=== PATIENT | male | born 1965 | race Two or more races ===

== ENCOUNTER 2025-09-09 13:25 | Emergency (ER) | payer MEDICAID ==
[~2025-09-09] VITALS: Ht 177.8 cm; Wt 79.8 kg
[2025-09-09 13:57] LABS: PLATELET COUNT (AUTO) 318 K/uL (150-450); RED BLOOD CELL COUNT(AUTO) 4.56 MIL/uL (4.5-6.0); RED CELL DISTRIBUTION WIDTH 13.2 % (11.5-15.0); WHITE BLOOD COUNT (AUTO) 6.3 K/uL (4.3-11.0)
[2025-09-09 14:03] LABS: CALCIUM, SERUM 8.9 mg/dL (8.5-10.1); CREATININE 0.8 mg/dL (0.6-1.3); SODIUM SERUM 135.0 mmol/L (136-145); UREA NITROGEN, BLOOD 16.0 mg/dL (7-18)
[2025-09-09 14:09] LABS: ASPARTATE AMINOTRANSFERASE 20.0 U/L (15-37); TOTAL PROTEIN, SERUM 8.3 g/dL (6.4-8.2)
[2025-09-09 14:18] LABS: APPEARANCE,URINE CLEAR (CLEAR); BLOOD, URINE NEGATIVE Ery/uL (NEGATIVE); LEUKOCYTE ESTERASE ,URINE NEGATIVE (NEGATIVE); NITRITE, URINE NEGATIVE (NEGATIVE); UGLUCOSE NEGATIVE (NEGATIVE)
[2025-09-09] MEDS ORDERED: ONDANSETRON HCL/PF 4 MG/2 ML VIAL ONE (14:40)
[2025-09-09] MEDS ORDERED: FAMOTIDINE/PF INJ 20 MG/2 ML VIAL IV ONE (14:41)
[2025-09-09] MEDS ORDERED: MORPHINE SULFATE INJ 4 MG/ML DISP.SYRIN ONE (14:41)
[2025-09-09] MEDS: ONDANSETRON HCL/PF 4 MG/2 ML VIAL IVP ONE (14:53)
[2025-09-09] MEDS: FAMOTIDINE/PF INJ 20 MG/2 ML VIAL IV ONE (14:54)
[2025-09-09] MEDS: MORPHINE SULFATE INJ 2 MG/ML DISP.SYRIN IV ONE (14:55)
[2025-09-09] MEDS ORDERED: IOHEXOL-300 100 ML VIAL IV ONE (15:18)
[2025-09-09] MEDS ORDERED: IV NS 0.9% 250 ML IV ONE (15:18)
[2025-09-09] MEDS ORDERED: TRAM50TA2 PO (16:25)
[2025-09-09] MEDS ORDERED: ONDA4TAB11 PO (16:25)
[2025-09-09] MEDS ORDERED: IBUP-1490 PO (16:25)
[2025-09-09 20:17] VITALS: BP 115/91; TEMP 98.5; O2SAT 97
== END 2025-09-09 18:35 | disposition home or self-care (01) ==
LOC: ER 13:39
DX: K86.2 Cyst of pancreas (principal)
CPT/HCPCS: 99285; 74177; 96374; 96375; 85025; 80048; 83690; 80076; 81003; 36415; J2270; J1308; J2405; J7050; Q9967